=== PATIENT | male | born 1990 | race Caucasian/White ===

== ENCOUNTER 2017-09-05 01:01 | Outpatient (CLI) | payer MEDICAID | END 2017-09-05 01:02 | disposition critical access hospital (66) | LOC: EMS 01:01 | PROVIDERS: ATTEND Surgery | DX: R51 Headache (principal) | CPT/HCPCS: A0425; A0429 ==

== ENCOUNTER 2017-09-05 01:19 | Emergency (ER) | payer MEDICAID ==
[2017-09-05] MEDS ORDERED: KETOROLAC 60 MG/2 ML VIAL IVP STA (01:26)
[2017-09-05] MEDS ORDERED: SODIUM CHLORIDE 0.9% 1,000 ML IV ONE (01:27)
[2017-09-05] MEDS ORDERED: diphenhydrAMINE INJ 50 MG/ML VIAL IVP STA (01:27)
[2017-09-05] MEDS ORDERED: PROCHLORPERAZINE 10 MG/2 ML VIAL IVP STA (01:27)
--- NOTE | 2017-09-05 01:52 | ED Physician Documentation ---
PD HPI HEADACHE - Stated complaint Stated Complaint: HEADACHE - Chief complaint Chief Complaint: Neuro - History obtained from History obtained from: Patient, EMS - History of Present Illness Timing - onset: Yesterday Timing - onset during: Rest Timing - duration: Hours (24) Timing - details: Gradual onset Pain level max: 9 Pain level now: 9 Worst headache ever?: No: Worst headache ever? Location: Front Quality: Throbbing, Aching. No: Thunderclap Associated symptoms: Nausea. No: Fever, Stiff neck, Vomiting, Weakness, Numbness, Syncope, Seizure, Eye pain, Vision changes Improved by: Rest, Dark room Worsened by: Light, Noise Contributing factors: Trauma (unsure if he struck his head or not). No: Anticoagulated, Possible carbon monoxide, Hypertension, Recent illness Similar symptoms before: Diagnosis (has had headaches in the past) Recently seen: Not recently seen - Additional information Additional information: states last used IV heroin 2 days ago. Has been in alf for the past 24 hours. Review of Systems Ten Systems: 10 systems reviewed and negative Constitutional: denies: Fever, Chills Eyes: reports: Photophobia Ears: denies: Ear pain Nose: reports: Congestion, Sinus pressure / pain. denies: Rhinorrhea / runny nose Throat: denies: Sore throat Cardiac: denies: Chest pain / pressure Respiratory: denies: Cough GI: denies: Abdominal Pain, Diarrhea, Hematemesis, Bloody / black stool : denies: Dysuria, Frequency Skin: denies: Rash Musculoskeletal: denies: Neck pain, Back pain Neurologic: denies: Focal weakness, Numbness, Seizure, Confused, Altered mental status Psychiatric: denies: Depressed, Suicidal, Homicidal, Hallucinations, Delusions PD PAST MEDICAL HISTORY - Past Medical History Past Medical History: Yes Other Past Medical History: Facial staph infection - Past Surgical History Past Surgical History: Yes - Present Medications Home Medications: Ambulatory Orders Medication Instructions Recorded Confirmed Meloxicam [Mobic] 7.5 mg PO BID PRN #20 tablet 09/05/17 Mometasone Furoate [Nasonex] 1 spray NS BID PRN #1 spray.pump 09/05/17 - Allergies Allergies/Adverse Reactions: Allergies Allergy/AdvReac Type Severity Reaction Status Date / Time No Known Drug Allergies Allergy Verified 09/05/17 01:30 - Social History Does the pt smoke?: Yes Smoking Status: Current every day smoker Does the pt drink ETOH?: No Does the pt have substance abuse?: Yes Substance Use and Type: Heroin - Immunizations Immunizations are current?: Yes - POLST Patient has POLST: No PD ED PE NORMAL - Vitals Vital signs reviewed: Yes - General General: Alert and oriented X 3, No acute distress, Well developed/nourished - HEENT HEENT: PERRL, Ears normal, Moist mucous membranes, Other (TTP over R maxillary sinus) - Neck Neck: Supple, no meningeal sign - Cardiac Cardiac: RRR - Respiratory Respiratory: No respiratory distress, Clear bilaterally - Abdomen Abdomen: Normal bowel sounds, Soft, Non tender, Non distended - Derm Derm: Warm and dry, Other (track almonte in L AC, no signs of infection) - Extremities Extremities: No edema - Neuro Neuro: Alert and oriented X 3, 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, No motor deficit, No sensory deficit, Normal speech, Other (normal cerebellar tests) - Psych Psych: Normal mood, Normal affect Results - Vitals Vitals: Vital Signs - 24 hr 09/05/17 09/05/17 09/05/17 01:21 02:13 02:30 Temperature 37.5 C Heart Rate 75 93 110 H Respiratory 18 20 20 Rate Blood Pressure 142/81 H 122/77 133/65 H O2 Saturation 100 99 100 09/05/17 09/05/17 02:50 03:02 Temperature 36.3 C L Heart Rate 119 H 95 Respiratory 20 18 Rate Blood Pressure 137/89 H 130/70 O2 Saturation 100 100 Oxygen O2 Source Room air - Rads (name of study) CT head Radiology: Prelim report reviewed, EMP read contemporaneously, See rad report ( no acute intracranial abnormality. L maxillary sinus mucosal thickening) PD MEDICAL DECISION MAKING - ED course Complexity details: reviewed results, re-evaluated patient, considered differential, d/w patient ED course: Patient is a 27-year-old male who presents to the emergency department with a headache for the past 24 hours. Headache resolved with Toradol, Compazine and Benadryl in the emergency department. Tolerating p.o. without difficulty here. No fevers. He does appear to be in narcotic withdrawal and was given clonidine for this. He does not want to go to rehab. Refuses chemical dependency treatment at this time. Resources will be given at the time of discharge. Patient is not suicidal or homicidal. He is able to make his own decisions. Patient counseled regarding signs and symptoms for which I believe and urgent re-evaluation would be necessary. Patient with good understanding of and agreement to plan and is comfortable going home at this time This document was made in part using voice recognition software. While efforts are made to proofread this document, sound alike and grammatical errors may occur. Departure - Departure Disposition: 01 Home, Self Care Clinical Impression: Narcotic withdrawal Headache Qualifiers: Headache type: unspecified Headache chronicity pattern: acute headache Intractability: not intractable Qualified Code(s): R51 - Headache Sinusitis Qualifiers: Sinusitis location: maxillary Chronicity: acute Recurrence: non-recurrent Qualified Code(s): J01.00 - Acute maxillary sinusitis, unspecified Condition: Good Instructions: ED Withdrawal Narcotic, ED Headache Sinus, ED Sinusitis No Abx Follow-Up: your,doctor in 3 days [Other] Prescriptions: Meloxicam [Mobic] 7.5 mg PO BID PRN #20 tablet PRN Reason: Pain Mometasone Furoate [Nasonex] 1 spray NS BID PRN #1 spray.pump PRN Reason: Nasal Congestion Comments: Return if you worsen. Follow-up with your doctor for further care. You were given resources tonight for help with your drug abuse. This document was made in part using voice recognition software. While efforts are made to proofread this document, sound alike and grammatical errors may occur. Discharge Date/Time: 09/05/17 03:07
[2017-09-05] MEDS ORDERED: LORazepam 2 MG/ML VIAL IVP STA (02:01)
--- NOTE | 2017-09-05 02:21 | CT Preliminary Report ---
Exam: CT HEAD W/O IMPRESSION: 1. No acute intracranial process. 2. Moderate mucosal thickening in the left maxillary sinus. [facility] SITE ID: [id number]
[2017-09-05] MEDS ORDERED: BENZTROPINE 2 MG/2 ML AMP IVP STA (02:27)
[2017-09-05] MEDS ORDERED: cloNIDine 0.1 MG TABLET PO STA (02:28)
--- NOTE | 2017-09-05 02:33 | CT Report ---
EXAM: CT HEAD EXAM DATE: 09/05/2017 02:07 AM. CLINICAL HISTORY: Dizziness, nausea, vomiting, and headache. COMPARISON: None. TECHNIQUE: Multiaxial CT images were obtained from the foramen magnum to the vertex. Reformats: Coron al. IV contrast: None. In accordance with CT protocol optimization, one or more of the following dose reduction techniques w ere utilized for this exam: automated exposure control, adjustment of mA and/or KV based on patient s ize, or use of iterative reconstructive technique. FINDINGS: Parenchyma: No intraparenchymal hemorrhage. No evidence of mass, midline shift, or CT findings of inf arction. Vázquez-white differentiation is distinct. Extraaxial Spaces: Normal for age. No subdural or epidural collections identified. Ventricles: Normal in size and position. Sinuses and Orbits: There is moderate mucosal thickening in the partially visualized left maxillary s inus. A mucus retention cyst is also noted in the left maxillary sinus. The orbits and mastoid sinuse s are unremarkable. Bones: No evidence of fracture or calvarial defect. IMPRESSION: 1. No acute intracranial process. 2. Moderate mucosal thickening in the left maxillary sinus. [facility] Referring Provider Line: [phone] SITE ID: [id number]
[2017-09-05] MEDS ORDERED: BENZTROPINE 2 MG/2 ML VIAL ONE (02:46)
[2017-09-05 03:05] VITALS: BP 130/70
== END 2017-09-05 03:07 | disposition home or self-care (01) ==
LOC: EDUNIT# → ED 01:19
DX: F11.23 Opioid dependence with withdrawal (principal); J01.00 Acute maxillary sinusitis, unspecified; R51 Headache; F17.200 Nicotine dependence, unspecified, uncomplicated
CPT/HCPCS: 70450; 96374; 96375; 99283; 99284; A9270; J0515; J1200; J2060

== ENCOUNTER 2017-12-03 10:42 | Outpatient (CLI) | payer MEDICAID | END 2017-12-03 10:43 | disposition critical access hospital (66) | LOC: EMS 10:42 | PROVIDERS: ATTEND Surgery | DX: R07.9 Chest pain, unspecified (principal); R06.02 Shortness of breath | CPT/HCPCS: A0425; A0429; A0999 ==

== ENCOUNTER 2017-12-03 11:01 | Emergency (ER) | payer OTHER ==
[2017-12-03 11:54] LABS: BASOPHILS % (AUTO) 0.7 %; EOSINOPHILS # (AUTO) 0.1 10^3/uL (0.0-0.7); EOSINOPHILS % (AUTO) 0.8 %; HGB - HEMOGLOBIN 14.8 g/dL (14.0-18.0); LYMPHOCYTES # (AUTO) 1.1 10^3/uL (1.5-3.5); LYMPHOCYTES % (AUTO) 15.5 %; MEAN CORPUSCULAR HEMOGLOBIN 27.7 pg (27.0-31.0); MEAN CORPUSCULAR HGB CONC 33.1 g/dL (32.0-36.0); MEAN CORPUSCULAR VOLUME 83.8 fL (80.0-94.0); MEAN PLATELET VOLUME 7.8 fL (7.4-11.4); MONOCYTES # (AUTO) 0.4 10^3/uL (0.0-1.0); MONOCYTES % (AUTO) 5.1 %; NEUTROPHILS # (AUTO) 5.5 10^3/uL (1.5-6.6); NEUTROPHILS % (AUTO) 77.9 %; PLT - PLATELET COUNT 278 10^3/uL (130-450); RED BLOOD COUNT 5.34 10^6/uL (4.70-6.10); RED CELL DISTRIBUTION WIDTH 13.8 % (12.0-15.0); WHITE BLOOD COUNT 7.1 x10^3/uL (4.8-10.8)
[2017-12-03 12:09] LABS: ALBUMIN/GLOBULIN RATIO 0.9 (1.0-2.2); BILIRUBIN,TOTAL 0.6 mg/dL (0.2-1.0); CALCIUM 9.5 mg/dL (8.5-10.3); CREATININE 0.8 mg/dL (0.6-1.2); TOTAL PROTEIN 8.4 g/dL (6.7-8.2)
--- NOTE | 2017-12-03 12:09 | ED Physician Documentation ---
PD HPI CHEST PAIN - Stated complaint Stated Complaint: CP - Chief complaint Chief Complaint: Cardiac - History obtained from History obtained from: Patient - History of Present Illness Timing - onset: How many hours ago (2) Timing - onset during: Rest Timing - duration: Hours (2) Timing - details: Abrupt onset Pain level max: 5 Pain level now: 4 Quality: Sharp Location: Other (anterior chest) Radiation: Other (Nonradiating) Improved by: Rest Worsened by: Eating. No: Exertion, Inspiration, Movement, Palpation, Position Associated symptoms: No: Shortness of air, Diaphoresis, Nausea, Vomiting, Feeling faint / dizzy, General Weakness, Palpitations, Cough Similar symptoms before: Has not had sx before - Additional information Additional information: States last used methamphetamines 2 days ago. Usually smokes them. No young cardiac history in the family. No history of blood clots. Review of Systems Ten Systems: 10 systems reviewed and negative Constitutional: denies: Fever, Chills, Myalgias Ears: denies: Ear pain Nose: denies: Rhinorrhea / runny nose, Congestion Throat: denies: Sore throat Cardiac: denies: Palpitations Respiratory: denies: Cough GI: denies: Abdominal Pain, Nausea, Vomiting, Constipation, Diarrhea : denies: Dysuria Skin: denies: Rash Musculoskeletal: denies: Neck pain, Back pain Neurologic: denies: Focal weakness, Numbness, Headache PD PAST MEDICAL HISTORY - Past Medical History Past Medical History: No - Past Surgical History Past Surgical History: Yes - Present Medications Home Medications: Ambulatory Orders Medication Instructions Recorded Confirmed Meloxicam [Mobic] 7.5 mg PO BID PRN #20 tablet 09/05/17 Mometasone Furoate [Nasonex] 1 spray NS BID PRN #1 spray.pump 09/05/17 - Allergies Allergies/Adverse Reactions: Allergies Allergy/AdvReac Type Severity Reaction Status Date / Time No Known Drug Allergies Allergy Verified 09/05/17 01:30 - Social History Does the pt smoke?: Yes Smoking Status: Current every day smoker Does the pt drink ETOH?: No Does the pt have substance abuse?: Yes - Immunizations Immunizations are current?: Yes - POLST Patient has POLST: No PD ED PE NORMAL - Vitals Vital signs reviewed: Yes - General General: Alert and oriented X 3, No acute distress - HEENT HEENT: PERRL, Moist mucous membranes - Neck Neck: Supple, no meningeal sign - Cardiac Cardiac: RRR, Strong equal pulses - Respiratory Respiratory: No respiratory distress, Clear bilaterally - Abdomen Abdomen: Soft, Non tender, Non distended - Derm Derm: Warm and dry - Extremities Extremities: No edema, No calf tenderness / cord - Neuro Neuro: Alert and oriented X 3, No motor deficit, No sensory deficit - Psych Psych: Normal mood, Normal affect Results - Vitals Vitals: Vital Signs - 24 hr 12/03/17 12/03/17 11:14 12:55 Temperature 36.4 C L Heart Rate 89 76 Respiratory 16 16 Rate Blood Pressure 113/72 120/74 O2 Saturation 99 100 Oxygen O2 Source Room air - EKG (time done) 1106 Rate: Rate (enter#) (88) Rhythm: NSR [place]: Normal Intervals: Normal NM Ischemia: ST elevation c/w repol - Labs Labs: Laboratory Tests 12/03/17 12/03/17 12/03/17 11:48 11:48 11:48 WBC 7.1 RBC 5.34 Hgb 14.8 Hct 44.7 MCV 83.8 MCH 27.7 MCHC 33.1 RDW 13.8 Plt Count 278 MPV 7.8 Neut # (Auto) 5.5 Lymph # (Auto) 1.1 L Jewell # (Auto) 0.4 Eos # (Auto) 0.1 Baso # (Auto) 0.0 Absolute Nucleated RBC 0.00 Nucleated RBC % 0.0 Sodium 136 Potassium 4.2 Chloride 102 Carbon Dioxide 26 Anion Gap 8.0 BUN 11 Creatinine 0.8 Estimated GFR (MDRD) 116 Glucose 104 H Calcium 9.5 Total Bilirubin 0.6 AST 45 H ALT 57 Alkaline Phosphatase 80 Troponin I < 0.04 Total Protein 8.4 H Albumin 4.0 Globulin 4.4 H Albumin/Globulin Ratio 0.9 L Lipase 23 - Rads (name of study) cxr Radiology: Prelim report reviewed, EMP read contemporaneously, See rad report ( No acute abnormality) PD MEDICAL DECISION MAKING - ED course Complexity details: reviewed results, re-evaluated patient, considered differential (No ST elevation TN, no aortic dissection, no PE, no tension pneumothorax, no aortic aneurysm), d/w patient ED course: Patient is a 27-year-old male who presents to the emergency department with atypical chest pain. No acute findings on EKG, laboratory testing or chest x- ray. Pain improved with Maalox. Will have him follow-up with his doctor for further evaluation and care. Can utilize Tylenol as needed for pain. Patient counseled regarding signs and symptoms for which I believe and urgent re- evaluation would be necessary. Patient with good understanding of and agreement to plan and is comfortable going home at this time This document was made in part using voice recognition software. While efforts are made to proofread this document, sound alike and grammatical errors may occur. Fit for confinement filled out and given to police - Sepsis Event Vital Signs: Vital Signs - 24 hr 12/03/17 12/03/17 11:14 12:55 Temperature 36.4 C L Heart Rate 89 76 Respiratory 16 16 Rate Blood Pressure 113/72 120/74 O2 Saturation 99 100 Oxygen O2 Source Room air Departure - Departure Disposition: 01 Home, Self Care Clinical Impression: Atypical chest pain Condition: Good Instructions: ED Chest Pain Atypical Unkn Cause Follow-Up: your,doctor in 1 week [Other] Comments: The cause of your symptoms is unclear today. Your laboratory testing and EKG are normal. Your chest x-ray is normal. Return if you worsen. Discharge Date/Time: 12/03/17 12:56
[2017-12-03] MEDS ORDERED: KETOROLAC 30 MG/ML VIAL IM STA (12:29)
[2017-12-03] MEDS ORDERED: MAG HYDROX/AL HYDROX/SIMETH 30 ML UDC PO STA (12:29)
--- NOTE | 2017-12-03 12:41 | XRAY Report ---
Procedure Date: 12/03/2017 Accession Number: [id number] / [id number] Procedure: XR - Chest 2 View X-Ray CPT Code: 07919 FULL RESULT: EXAM: CHEST RADIOGRAPHY EXAM DATE: 12/03/2017 12:32 PM. CLINICAL HISTORY: Chest pain. COMPARISON: None. TECHNIQUE: 2 views. FINDINGS: Lungs/Pleura: No focal opacities evident. No pleural effusion. No pneumothorax. Normal volumes. Mediastinum: Heart and mediastinal contours are unremarkable. Other: None. IMPRESSION: Normal 2-view chest radiography. [facility]
[2017-12-03 12:57] VITALS: BP 120/74
== END 2017-12-03 12:56 | disposition home or self-care (01) ==
LOC: EDUNIT# → ED 11:01
DX: R07.89 Other chest pain (principal); F17.200 Nicotine dependence, unspecified, uncomplicated
CPT/HCPCS: 36415; 71046; 80053; 83690; 84484; 85025; 93005; 96372; 99283; A9270

== ENCOUNTER 2018-08-02 11:30 | Emergency (ER) | payer MEDICAID, OTHER ==
[2018-08-02 11:41] VITALS: BP 120/62
--- NOTE | 2018-08-02 12:01 | ED Physician Documentation ---
PD HPI HEENT - Stated complaint Stated Complaint: EAR PAIN/SINUS PAIN - Chief complaint Chief Complaint: Heent - History obtained from History obtained from: Patient - History of Present Illness Timing - onset: Yesterday Timing - duration: Days (1) Timing - details: Abrupt onset, Still present Location: Right ear Worsens: Swalllowing, Noise Associated symptoms: Fever, Congestion, Rhinorrhea, Headache, Cough Similar symptoms before: Diagnosis (OM) Recently seen: Not recently seen - Additional information Additional information: 28-year-old male has had cough and congestion for the past week and he has now developed ear pain on the right side with some drainage. Ear pain is now severe he is come to the emergency department for evaluation. He has had trouble hearing. Review of Systems Constitutional: denies: Fever Eyes: denies: Decreased vision Ears: reports: Ear pain, Drainage/discharge Nose: reports: Rhinorrhea / runny nose, Congestion Throat: reports: Sore throat Cardiac: denies: Chest pain / pressure, Palpitations Respiratory: reports: Cough. denies: Dyspnea GI: denies: Vomiting PD PAST MEDICAL HISTORY - Past Medical History Cardiovascular: None Respiratory: None Neuro: None Endocrine/Autoimmune: None GI: None : None HEENT: None Musculoskeletal: Osteoarthritis Derm: None - Past Surgical History Past Surgical History: Yes - Present Medications Home Medications: Ambulatory Orders Medication Instructions Recorded Confirmed Meloxicam [Mobic] 7.5 mg PO BID PRN #20 tablet 09/05/17 Mometasone Furoate [Nasonex] 1 spray NS BID PRN #1 spray.pump 09/05/17 Amox/Clav 875/125 [Augmentin] 1 each PO Q12H #20 tablet 08/02/18 Hydrocodone/Acetaminophen 1 - 2 each PO Q6H PRN #14 tablet 08/02/18 [Hydrocodon-Acetaminophen 5-325] - Allergies Allergies/Adverse Reactions: Allergies Allergy/AdvReac Type Severity Reaction Status Date / Time No Known Drug Allergies Allergy Verified 09/05/17 01:30 - Social History Does the pt smoke?: Yes Smoking Status: Current every day smoker Does the pt drink ETOH?: No Does the pt have substance abuse?: Yes - Immunizations Immunizations are current?: Yes - POLST Patient has POLST: No PD ED PE NORMAL - Vitals Vital signs reviewed: Yes - General General: Alert and oriented X 3, Well developed/nourished, Other (appears to be in pain. ) - HEENT HEENT: Atraumatic, PERRL, EOMI, Other (There is drainage from the right ear and the TM is foamed with and distorted. The left is erythematous with distorted landmarks. 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, No motor deficit, No sensory deficit, Normal speech Eye Opening: Spontaneous Motor: Obeys Commands Verbal: Oriented GCS Score: 15 - Psych Psych: Normal mood, Normal affect Results - Vitals Vitals: Vital Signs - 24 hr 08/02/18 11:36 Temperature 36.5 C Heart Rate 86 Respiratory 16 Rate Blood Pressure 120/62 O2 Saturation 100 Oxygen O2 Source Room air PD MEDICAL DECISION MAKING - ED course Complexity details: considered differential, d/w patient ED course: 28-year-old male with bilateral otitis has a rupture on the right is administered dexamethasone 10 mg orally and we will place him on some Augmentin. Departure - Departure Disposition: 01 Home, Self Care Clinical Impression: Otitis media Qualifiers: Otitis media type: suppurative Chronicity: acute Laterality: bilateral Recurrence: not specified as recurrent Spontaneous tympanic membrane rupture: without spontaneous rupture Qualified Code(s): H66.003 - Acute suppurative otitis media without spontaneous rupture of ear drum, bilateral Condition: Stable Instructions: ED Otitis Media Acute Adult Follow-Up: [facility] [Provider Group] Prescriptions: Amox/Clav 875/125 [Augmentin] 1 each PO Q12H #20 tablet Hydrocodone/Acetaminophen [Hydrocodon-Acetaminophen 5-325] 1 - 2 each PO Q6H PRN #14 tablet PRN Reason: pain
[2018-08-02] MEDS ORDERED: DEXAMETHASONE 10 MG/ML VIAL PO STA (12:05)
[2018-08-02] MEDS ORDERED: CHERRY SYRUP 10 ML UDC PO ONE (12:15)
== END 2018-08-02 12:13 | disposition home or self-care (01) ==
LOC: ED 11:30
DX: H66.011 Acute suppurative otitis media with spontaneous rupture of ear drum, right ear (principal); H66.002 Acute suppurative otitis media without spontaneous rupture of ear drum, left ear; F17.200 Nicotine dependence, unspecified, uncomplicated
CPT/HCPCS: 99283; A9270

== ENCOUNTER 2018-09-30 11:56 | Emergency (ER) | payer MEDICAID ==
[2018-09-30 12:06] VITALS: BP 119/66
[2018-09-30] MEDS ORDERED: SULFAMETH/TRIMETH DS 800/160 MG TABLET PO STA (13:23)
[2018-09-30] MEDS ORDERED: HYDROcod/ACETAM 5/325 MG TABLET PO STA (13:23)
[2018-09-30] MEDS ORDERED: cephALEXin 250 MG CAPSULE PO STA (13:23)
--- NOTE | 2018-09-30 13:27 | ED Physician Documentation ---
PD HPI SKIN - Stated complaint Stated Complaint: LT HAND SWELLING - Chief complaint Chief Complaint: Wound - History obtained from History obtained from: Patient - History of Present Illness Timing - onset: Yesterday (28-year-old gentleman with history of narcotic abuse although he says he has not used drugs in about 5 months presents with a painful lesion on the left upper extremity, with some other scabbed over and draining lesions on the scalp and upper extremities. No fevers.) Review of Systems Ten Systems: 10 systems reviewed and negative Constitutional: denies: Fever, Chills, Myalgias, Fatigue Throat: reports: Reviewed and negative Cardiac: reports: Reviewed and negative Respiratory: reports: Reviewed and negative PD PAST MEDICAL HISTORY - Past Medical History Cardiovascular: None Respiratory: None Neuro: None Endocrine/Autoimmune: None GI: None : None HEENT: None Musculoskeletal: Osteoarthritis Derm: None - Past Surgical History Past Surgical History: Yes - Present Medications Home Medications: Ambulatory Orders Medication Instructions Recorded Confirmed Meloxicam [Mobic] 7.5 mg PO BID PRN #20 tablet 09/05/17 Mometasone Furoate [Nasonex] 1 spray NS BID PRN #1 spray.pump 09/05/17 Amox/Clav 875/125 [Augmentin] 1 each PO Q12H #20 tablet 08/02/18 Hydrocodone/Acetaminophen 1 - 2 each PO Q6H PRN #14 tablet 08/02/18 [Hydrocodon-Acetaminophen 5-325] Cephalexin [Keflex] 500 mg PO Q6H #40 capsule 09/30/18 Hydrocodone/Acetaminophen 1 - 2 each PO Q6H PRN #14 tablet 09/30/18 [Hydrocodon-Acetaminophen 5-325] Sulfamethoxazole/Trimethoprim 1 each PO BID #20 tablet 09/30/18 [Sulfamethoxazole-Tmp Ds Tablet] - Allergies Allergies/Adverse Reactions: Allergies Allergy/AdvReac Type Severity Reaction Status Date / Time No Known Drug Allergies Allergy Verified 09/30/18 12:06 - Social History Does the pt smoke?: Yes Smoking Status: Current every day smoker Does the pt drink ETOH?: No Does the pt have substance abuse?: Yes - Immunizations Immunizations are current?: Yes - POLST Patient has POLST: No PD ED PE NORMAL - Vitals Vital signs reviewed: Yes - General General: Alert and oriented X 3, No acute distress - Extremities Extremities: Other (There is a small draining lesion on the back of the scalp, there are numerous areas of scabs on the upper extremities, and there is a large area of cellulitis on the posterior lateral side of the left forearm. Ultrasound of this area demonstrates no drainable fluid collection at this time.) - Neuro Neuro: Alert and oriented X 3, Normal speech Results - Vitals Vitals: Vital Signs - 24 hr 09/30/18 12:05 Temperature 37.0 C Heart Rate 85 Respiratory 18 Rate Blood Pressure 119/66 O2 Saturation 99 Oxygen O2 Source Room air PD MEDICAL DECISION MAKING - ED course ED course: He has multiple draining lesions, and an area of cellulitis that is not right for incision and drainage. 1 of the lesions was cultured and he is asked to return in 2 days for recheck as I suspect he will develop more of an abscess that requires an incision and drainage. Departure - Departure Disposition: 01 Home, Self Care Clinical Impression: Cellulitis of left arm Condition: Good Record reviewed to determine appropriate education?: Yes Instructions: Cellulitis Dc Prescriptions: Cephalexin [Keflex] 500 mg PO Q6H #40 capsule Hydrocodone/Acetaminophen [Hydrocodon-Acetaminophen 5-325] 1 - 2 each PO Q6H PRN #14 tablet PRN Reason: pain Sulfamethoxazole/Trimethoprim [Sulfamethoxazole-Tmp Ds Tablet] 1 each PO BID #20 tablet Comments: As discussed, this does not look "ripe" for drainage at this point as there is no fluid collection. But often the natural history of this type of infection is to develop a fluid collection that requires drainage. Please return in 2 days for recheck for reevaluation of this. Sooner if worse or feeling generally sick or feverish.
== END 2018-09-30 13:30 | disposition home or self-care (01) ==
LOC: ED 11:56
DX: L03.114 Cellulitis of left upper limb (principal); L98.9 Disorder of the skin and subcutaneous tissue, unspecified; F17.200 Nicotine dependence, unspecified, uncomplicated
CPT/HCPCS: 87070; 87181; 87205; 99283; A9270

== ENCOUNTER 2019-09-06 12:01 | Emergency (ER) | payer MEDICAID ==
--- NOTE | 2019-09-06 12:32 | ED Physician Documentation ---
History of Present Illness - Stated complaint Stated Complaint: MALE - Chief complaint Chief Complaint: General - History obtained from History obtained from: Patient - Additonal information Additional information: PT comes to the ED with his girlfriend, who is here for delayed treatment of trichomoniasis. Pt would like to be treated, too, as GF was diagnosed a couple of months ago, but did not complete treatment, and is complaining of sx again. Pt denies sx at this time. No dysuria or penile d/c. No fevers or abd pain. Pt and GF are currently sexually active. No other complaints currently. Review of Systems Ten Systems: 10 systems reviewed and negative Constitutional: reports: Reviewed and negative Eyes: reports: Reviewed and negative Ears: reports: Reviewed and negative Nose: reports: Reviewed and negative Throat: reports: Reviewed and negative Cardiac: reports: Reviewed and negative Respiratory: reports: Reviewed and negative GI: reports: Reviewed and negative : reports: Reviewed and negative Skin: reports: Reviewed and negative Musculoskeletal: reports: Reviewed and negative Neurologic: reports: Reviewed and negative Psychiatric: reports: Reviewed and negative Endocrine: reports: Reviewed and negative Immunocompromised: reports: Reviewed and negative PD PAST MEDICAL HISTORY - Past Medical History Cardiovascular: None Respiratory: None Neuro: None Endocrine/Autoimmune: None GI: None : None HEENT: None Musculoskeletal: Osteoarthritis Derm: None - Past Surgical History Past Surgical History: Yes - Present Medications Home Medications: Ambulatory Orders Medication Instructions Recorded Confirmed Meloxicam [Mobic] 7.5 mg PO BID PRN #20 tablet 09/05/17 Mometasone Furoate [Nasonex] 1 spray NS BID PRN #1 spray.pump 09/05/17 Amox/Clav 875/125 [Augmentin] 1 each PO Q12H #20 tablet 08/02/18 Hydrocodone/Acetaminophen 1 - 2 each PO Q6H PRN #14 tablet 08/02/18 [Hydrocodon-Acetaminophen 5-325] Cephalexin [Keflex] 500 mg PO Q6H #40 capsule 09/30/18 Hydrocodone/Acetaminophen 1 - 2 each PO Q6H PRN #14 tablet 09/30/18 [Hydrocodon-Acetaminophen 5-325] Sulfamethoxazole/Trimethoprim 1 each PO BID #20 tablet 09/30/18 [Sulfamethoxazole-Tmp Ds Tablet] metroNIDAZOLE [Flagyl] 500 mg PO BID #20 tablet 09/06/19 - Allergies Allergies/Adverse Reactions: Allergies Allergy/AdvReac Type Severity Reaction Status Date / Time No Known Drug Allergies Allergy Verified 09/30/18 12:06 - Social History Does the pt smoke?: Yes Smoking Status: Current every day smoker Does the pt drink ETOH?: No Does the pt have substance abuse?: Yes - Immunizations Immunizations are current?: Yes - POLST Patient has POLST: No PD ED PE NORMAL - Vitals Vital signs reviewed: Yes - General General: Alert and oriented X 3, No acute distress - HEENT HEENT: Atraumatic, PERRL, EOMI, Moist mucous membranes - Neck Neck: Supple, no meningeal sign - Respiratory Respiratory: No respiratory distress - Male Male : Deferred - Derm Derm: Normal color - Extremities Extremities: No deformity - Neuro Neuro: Alert and oriented X 3, Other (Grossly intact) - Psych Psych: Normal mood, Normal affect Results - Vitals Vitals: Oxygen O2 Source Room air PD MEDICAL DECISION MAKING - ED course Complexity details: considered differential, d/w patient ED course: PT started on Flagyl. I have d/w pt and GF, who will also be treated, that they should not have intercourse until both have completed treatment, and that they should take the treatment simultaneously. Departure - Departure Disposition: 01 Home, Self Care Clinical Impression: STD exposure, Trichomonas contact Condition: Stable Instructions: STDs Prescriptions: metroNIDAZOLE [Flagyl] 500 mg PO BID #20 tablet Comments: Please take the medication prescribed until All the medications gone. Do not have sexual intercourse for at least 24 hours after starting the medications. You and your girlfriend should start your medications at the same time so that you are both certain to be treated. Discharge Date/Time: 09/06/19 12:45
[2019-09-06 12:45] VITALS: BP 132/65
== END 2019-09-06 12:45 | disposition home or self-care (01) ==
LOC: ED 12:01
DX: Z20.2 Contact with and (suspected) exposure to infections with a predominantly sexual mode of transmission (principal); F17.200 Nicotine dependence, unspecified, uncomplicated
CPT/HCPCS: 99282

== ENCOUNTER 2022-10-03 04:23 | Outpatient (CLI) | payer MEDICAID | END 2022-10-03 04:24 | disposition left against medical advice (07) | LOC: EMS 04:23 | DX: R00.0 Tachycardia, unspecified (principal); R03.0 Elevated blood-pressure reading, without diagnosis of hypertension; T40.411A Poisoning by fentanyl or fentanyl analogs, accidental (unintentional), initial encounter ==

== ENCOUNTER 2023-09-25 17:12 | Emergency (ER) | payer MEDICAID, OTHER ==
[2023-09-25] MEDS: BUPRENORPHINE/NALOXONE 8-2 MG TAB SL STA (18:12)
[2023-09-25] MEDS: diphenhydrAMINE 25 MG CAPSULE PO STA (18:12)
[2023-09-25] MEDS: LORazepam 0.5 MG TABLET PO STA (18:12)
[2023-09-25] MEDS ORDERED: LIDOCAINE 1% 2 ML VIAL ONE (18:28)
--- NOTE | 2023-09-25 19:15 | ED Physician Documentation ---
History of Present Illness - Stated complaint Stated Complaint: WITHDRAWL - Chief complaint Chief Complaint: Neuro - Additonal information Additional information: 33-year-old male comes in custody of police with chief complaint Opiate and me thamphetamine withdrawal. Endorses for total body ache, nausea, vomiting. 3 days since last use as this is the amount of time he has been in police custody. Denies alcohol abuse or other illicit substance abuse. Denies SI, HI. Review of Systems Constitutional: reports: Myalgias. denies: Fever Eyes: denies: Loss of vision Ears: denies: Loss of hearing Nose: denies: Rhinorrhea / runny nose Throat: denies: Dental pain / toothache Cardiac: denies: Chest pain / pressure Respiratory: denies: Dyspnea : denies: Dysuria Skin: denies: Rash Musculoskeletal: denies: Neck pain PD PAST MEDICAL HISTORY - Past Medical History Cardiovascular: None Respiratory: None Neuro: None Endocrine/Autoimmune: None GI: None : None HEENT: None Musculoskeletal: Osteoarthritis Derm: None - Past Surgical History Past Surgical History: Yes - Present Medications Home Medications: Ambulatory Orders Medication Instructions Recorded Confirmed Meloxicam [Mobic] 7.5 mg PO BID PRN #20 tablet 09/05/17 Mometasone Furoate [Nasonex] 1 spray NS BID PRN #1 spray.pump 09/05/17 Amox/Clav 875/125 [Augmentin] 1 each PO Q12H #20 tablet 08/02/18 Hydrocodone/Acetaminophen 1 - 2 each PO Q6H PRN #14 tablet 08/02/18 [Hydrocodon-Acetaminophen 5-325] Hydrocodone/Acetaminophen 1 - 2 each PO Q6H PRN #14 tablet 09/30/18 [Hydrocodon-Acetaminophen 5-325] Sulfamethoxazole/Trimethoprim 1 each PO BID #20 tablet 09/30/18 [Sulfamethoxazole-Tmp Ds Tablet] cephALEXin [Keflex] 500 mg PO Q6H #40 capsule 09/30/18 metroNIDAZOLE [Flagyl] 500 mg PO BID #20 tablet 09/06/19 - Allergies Allergies/Adverse Reactions: Allergies Allergy/AdvReac Type Severity Reaction Status Date / Time No Known Drug Allergies Allergy Verified 09/25/23 17:31 - Social History Does the pt smoke?: Yes Smoking Status: Current every day smoker Does the pt drink ETOH?: No Does the pt have substance abuse?: Yes - Immunizations Immunizations are current?: Yes - POLST Patient has POLST: No PD ED PE NORMAL - Vitals Vital signs reviewed: Yes - General General: Alert and oriented X 3, No acute distress, Well developed/nourished - HEENT HEENT: Atraumatic, PERRL, EOMI, Ears normal, Moist mucous membranes, Pharynx benign - Neck Neck: Supple, no meningeal sign, No bony TTP, No adenopathy, Thyroid normal, No JVD - Cardiac Cardiac: RRR, No murmur, No gallop, Strong equal pulses - Respiratory Respiratory: No respiratory distress, Clear bilaterally - Abdomen Abdomen: Normal bowel sounds - Male Male : Deferred - Rectal Rectal: Deferred - Back Back: No CVA TTP, No spinal TTP - Derm Derm: Normal color - Extremities Extremities: No deformity - Neuro Neuro: Alert and oriented X 3, pen rider 2-12 intact, No motor deficit, No sensory deficit, Normal speech Results - Vitals Vitals: Vital Signs - 24 hr 09/25/23 09/25/23 17:31 18:09 Temperature 36.7 C Heart Rate 76 Respiratory 26 H Rate Blood Pressure 119/82 H O2 Saturation 100 Oxygen O2 Source Room air - EKG (time done) 1805 EKG releavant findings:: EKG personally interpreted by author of this note. Relevant findings are: Sinus rhythm with rate 58 bpm. Normal axis. Normal WI, QRS intervals. QTc prolonged at [address] segment elevations or T wave inversions. PD Medical Decision Making - ED course Complexity details: reviewed results, d/w patient ED course: Patient 33-year-old male with past medical significant for polysubstance abuse presents accompanied by police after 3 days of incarceration reporting symptoms of withdrawal. Endorsed for opiate and methamphetamine abuse. Denied alcohol abuse. Afebrile, he medically stable. EKG here shows sinus rhythm with mild prolongation of QT interval. Patient having some active retching in the emergency department. Slight delay in care as IV access was established. I have ordered for labs, oral medications to help with his symptoms. I will be signing out to the oncoming physician, please see their documentation for further detail. Departure - Departure Clinical Impression: Opiate withdrawal, Polysubstance abuse Forms: PCP List
[2023-09-25] MEDS: LORazepam 2 MG/ML VIAL IVP STA ×2 (19:34→20:31)
[2023-09-25] MEDS: SODIUM CHLORIDE 0.9% 1,000 ML IV STA ×3 (19:39→22:30)
[2023-09-25] MEDS: MAGNESIUM SULFATE 2 GRAM 2 GM/50 ML BAG IV ONE (19:39)
[2023-09-25] MEDS: ONDANSETRON 4 MG/2 ML VIAL IVP STA (19:40)
[2023-09-25 19:49] LABS: BASOPHILS % (AUTO) 0.3 %; EOSINOPHILS % (AUTO) 0.1 %; HGB - HEMOGLOBIN 14.7 g/dL (14.0-18.0); LYMPHOCYTES # (AUTO) 1.2 10^3/uL (1.5-3.5); LYMPHOCYTES % (AUTO) 8.7 %; MEAN CORPUSCULAR HEMOGLOBIN 27.9 pg (27.0-31.0); MEAN CORPUSCULAR HGB CONC 35.9 g/dL (32.0-36.0); MEAN CORPUSCULAR VOLUME 77.8 fL (80.0-94.0); MEAN PLATELET VOLUME 9.4 fL (7.4-11.4); MONOCYTES # (AUTO) 0.9 10^3/uL (0.0-1.0); MONOCYTES % (AUTO) 6.4 %; NEUTROPHILS % (AUTO) 83.9 %; PLT - PLATELET COUNT 390 10^3/uL (130-450); RED BLOOD COUNT 5.27 10^6/uL (4.70-6.10); RED CELL DISTRIBUTION WIDTH 12.3 % (12.0-15.0); WHITE BLOOD COUNT 14.3 x10^3/uL (4.8-10.8)
[2023-09-25 19:56] LABS: INR 1.3 (0.8-1.2); PT - PROTHROMBIN TIME 14.1 secs (9.9-12.6)
[2023-09-25 20:01] LABS: MAGNESIUM 1.8 mg/dL (1.7-2.3)
[2023-09-25 20:08] LABS: ALBUMIN/GLOBULIN RATIO 1.7 (1.0-2.2); ALKALINE PHOSPHATASE 70 IU/L (42-121); ALT ALANINE AMINOTRANSFERASE 15 IU/L (10-60); AST ASPARTATE AMINOTRANSFERASE 19 IU/L (10-42); BILIRUBIN,TOTAL 0.6 mg/dL (0.2-1.0); BUN - BLOOD UREA NITROGEN 18 mg/dL (6-20); CALCIUM 10.3 mg/dL (8.5-10.3); CARBON DIOXIDE - CO2 23 mmol/L (21-32); CHLORIDE 100 mmol/L (101-111); CK- CREATINE KINASE 127 IU/L (30-223); CREATININE 0.9 mg/dL (0.6-1.3); ETOH - ETHANOL < 10.0 mg/dL; GFR - MDRD 97 (>89); GLUCOSE 132 mg/dL (74-104); LIPASE 12 U/L (11-82); POTASSIUM 3.3 mmol/L (3.5-4.5); SODIUM 137 mmol/L (135-145); TOTAL PROTEIN 7.9 g/dL (6.4-8.9)
[2023-09-25 20:09] LABS: ACETAMINOPHEN < 0.1 ug/mL; SALICYLATE < 1.5 mg/dL
[2023-09-25 20:56] LABS: BILIRUBIN,URINE SMALL (NEGATIVE); GLUCOSE, URINE (UA) NEGATIVE (NEGATIVE); KETONES,URINE (UA) >=80 mg/dL (NEGATIVE); LEUKOCYTE ESTERASE, URINE NEGATIVE (NEGATIVE); NITRITE,URINE NEGATIVE (NEGATIVE); OCCULT BLOOD,URINE NEGATIVE (NEGATIVE); PH,URINE 6.5 PH (5.0-7.5); PROTEIN,URINE TRACE mg/dL (NEGATIVE); UROBILINOGEN,URINE 0.2 (NORMAL) E.U./dL (NORMAL)
[2023-09-25 20:57] LABS: CLARITY,URINE CLEAR (CLEAR)
[2023-09-25 21:15] LABS: AMPHETAMINE SCREEN,URINE POSITIVE (NEGATIVE); BARBITURATE SCREEN,UR NEGATIVE (NEGATIVE); BENZODIAZEPINES SCREEN, URINE NEGATIVE (NEGATIVE); BUPRENORPHINE SCREEN, URINE POSITIVE (NEGATIVE); COCAINE SCREEN URINE NEGATIVE (NEGATIVE); METHADONE SCREEN, URINE NEGATIVE (NEGATIVE); METHAMPHETAMINES SCREEN, URINE POSITIVE (NEGATIVE); OPIATE SCREEN, URINE NEGATIVE (NEGATIVE); OXYCODONE SCREEN, URINE NEGATIVE (NEGATIVE); THC CANNABINOID SCREEN, URINE NEGATIVE (NEGATIVE); TRICYCLIC ANTIDEPRESSANT,URINE NEGATIVE (NEGATIVE)
[2023-09-25] MEDS: POTASSIUM CHLORIDE 20 MEQ/15 ML UDC PO SCH (21:18)
[2023-09-25] MEDS: MAGNESIUM OXIDE 400 MG TABLET PO SCH (21:18)
[2023-09-25] MEDS: BUPRENORPHINE 0.3 MG/ML VIAL IVP ONE (21:21)
[2023-09-25] MEDS: cloNIDine 0.1 MG TABLET PO STA ×2 (21:56→21:57)
[2023-09-25] MEDS ORDERED: PROMETHAZINE 25 MG/1 ML VIAL ONE (22:27)
[2023-09-25] MEDS: PROMETHAZINE INJ 25 MG in SODIUM CHLORIDE 0.9% 50 ML IV STA (22:29)
[2023-09-25] MEDS: BUPRENORPHINE 0.3 MG/ML VIAL IVP STA (22:30)
[2023-09-26 00:41] VITALS: BP 105/58; O2SAT 99
[2023-09-26] MEDS: POTASSIUM BICARB 25 MEQ TABLET PO STA (00:51)
--- NOTE | 2023-09-26 04:41 | ED Physician Documentation ---
ED Addendum - Addendum Addendum: 09/26/23 04:37 I received signout this patient from Dr. Oswald at the end of his shift; please see his note for complete H&P. In brief, this patient presents from local [facility] for withdrawal from opiates and methamphetamines. Mild leukocytosis on blood work (WBC 14.3), mild hypokalemia (potassium 3.3). Unremarkable urinalysis. Urine drug screen is positive for buprenorphine, amphetamines/methamphetamines. During his ED stay, he is given lorazepam, clonidine, buprenorphine, ondanset christo, and Phenergan. Eventually, his symptoms were adequately controlled and he was discharged (medically cleared for return to confinement). Note that he was also given 25 mill equivalents p.o. potassium bicarbonate for his hypokalemia prior to discharge. He was tolerating p.o. including this medication as well as p.o. fluids prior to discharge.
== END 2023-09-26 01:00 | disposition home or self-care (01) ==
LOC: EDUNIT# → EDBD → ED 17:12
DX: F11.13 Opioid abuse with withdrawal (principal); F15.13 Other stimulant abuse with withdrawal; E87.6 Hypokalemia; F17.200 Nicotine dependence, unspecified, uncomplicated
CPT/HCPCS: 36415; 80053; 80143; 80179; 80306; 81003; 82077; 82550; 83690; 83735; 85025; 85610; 93005; 96365; 96367; 96375; 96376; 99285; A9270; J0592; J2060; J7040; 81001; 87086